=== PATIENT | male | born 1965 | race Caucasian/White ===

== ENCOUNTER 2019-05-17 17:32 | Emergency (ER) | payer OTHER ==
[2019-05-17] MEDS ORDERED: SODIUM CHLORIDE 0.9% 500 ML 500 ML IV STA (20:11)
--- NOTE | 2019-05-17 20:25 | ED ---
Abdominal Pain HPI - General Chief Complaint: Abdominal Pain Stated Complaint: left side abdominal pain Time Seen by Provider: 05/17/19 20:11 Source: patient Mode of arrival: ambulatory Limitations: no limitations - History of Present Illness Initial Comments: 54-year-old male presented emergency department for chief complaint left upper quadrant abdominal pain. Patient states the past 2 days he has had left upper quadrant abdominal pain. Patient states it hurts worse when he takes a deep breath or in specific positions. Denies any other specific alleviating or aggravating factors. Patient denies any chest pain shortness of breath denies diarrhea hemoptysis vomiting nausea no abdominal pain testicular pain arm pain and jaw pain he denies any back pain. Denies any dysuria urgency frequency hematuria. Patient states he does drink alcohol. Denies any melanotic stools or hematochezia. Patient denies experiencing this before. Patient denies any history of active cancer, patient denies use recent surgeries recent fractures recent immobilization, history of DVT/PE. Denies calf pain swelling or LE edema. Remaining ROS (-). Upon arrival patient appears well there is no signs of acute distress. - Related Data Home Medications Medication Instructions Recorded Confirmed Aspirin EC [Ecotrin Low Dose] 81 mg PO DAILY 05/17/19 05/17/19 Atorvastatin [Lipitor] 40 mg PO DAILY 05/17/19 05/17/19 Carvedilol [Coreg] 3.125 mg PO BID 05/17/19 05/17/19 Ibuprofen [Motrin] 800 mg PO Q6H PRN 05/17/19 05/17/19 Lisinopril [Zestril] 5 mg PO DAILY 05/17/19 05/17/19 Previous Rx's Medication Instructions Recorded Omeprazole 20 mg PO DAILY 14 Days #14 05/17/19 tablet. Allergies Allergy/AdvReac Type Severity Reaction Status Date / Time No Known Allergies Allergy Verified 05/17/19 21:14 Review of Systems ROS Statement: Those systems with pertinent positive or pertinent negative responses have been documented in the HPI. ROS Other: All systems not noted in ROS Statement are negative. Past Medical History Past Medical History: CVA/TIA, Myocardial Infarction ([place]) History of Any Multi-Drug Resistant Organisms: None Reported Past Surgical History: No Surgical Hx Reported Past Psychological History: No Psychological Hx Reported Smoking Status: Current every day smoker Past Alcohol Use History: Occasional Past Drug Use History: None Reported General Exam - General Exam Comments Initial Comments: General: The patient is awake and alert, in no distress, and does not appear acutely ill. Eye: Pupils are equal, round and reactive to light, extra-ocular movements are intact. No nystagmus. There is normal conjunctiva bilaterally. No signs of icterus. Ears, nose, mouth and throat: There are moist mucous membranes and no oral lesions. Neck: The neck is supple, there is no tenderness or JVD. Cardiovascular: There is a regular rate and rhythm. No murmur, rub or gallop is appreciated. Respiratory: Lungs are clear to auscultation, respirations are non-labored, b reath sounds are equal. No wheezes, stridor, rales, or rhonchi. Gastrointestinal: Soft, non-distended, abdomen tenderness to palpation of the left upper quadrant the remaining abdomen is nontender and without masses or organomegaly noted. There is no rebound or guarding present. No CVA tenderness. Bowel sounds are unremarkable. Musculoskeletal: Normal ROM, no tenderness. Strength 5/5. Sensation intact. Pulses equal bilaterally 2+. Neurological: A&O x 3. CN II-XII intact grossly, There are no obvious motor or sensory deficits. Coordination appears grossly intact. Speech is normal. Skin: Skin is warm and dry and no rashes or lesions are noted. Psychiatric: Cooperative, appropriate mood & affect, normal judgment. Limitations: no limitations Course Vital Signs 05/17/19 05/17/19 05/17/19 17:55 22:18 23:49 Temperature 99.3 F 98.5 F Pulse Rate 88 76 Respiratory 16 18 Rate Blood Pressure 122/85 134/90 O2 Sat by Pulse 98 81 L 97 Oximetry Medical Decision Making - Medical Decision Making 54-year-old male presenting for left upper quadrant abdominal pain. Reproducible on examination. Laboratories studies stable. CT abdomen/pevlic (-) for pathology. Patient did have an elevation of a d-dimer which obtained due to the close proximity of lung bourgeois and increase of pain with inspiration. CT negative for pulmonary embolism. Patient does state he frequently uses alcohol and frontal diagnosis includes peptic ulcer. Patient denies any melanotic stools. Hemoglobin stable patient appears well requesting discharge. Given patient well appearance with negative workup I feel patient is stable for dis charge with omeprazole and PCP f/u. Patient discharged appearing well. - Lab Data Result diagrams: 05/17/19 20:17 05/17/19 20:17 Lab Results 05/17/19 05/17/19 05/17/19 Range/Units 20:17 20:17 20:17 WBC 10.2 (3.8-10.6) k/uL RBC 5.07 (4.30-5.90) m/uL Hgb 16.0 (13.0-17.5) gm/dL Hct 48.0 (39.0-53.0) % MCV 94.8 (80.0-100.0) fL MCH 31.5 (25.0-35.0) pg MCHC 33.3 (31.0-37.0) g/dL RDW 12.7 (11.5-15.5) % Plt Count 297 (150-450) k/uL Neutrophils % 68 % Lymphocytes % 19 % Monocytes % 5 % Eosinophils % 4 % Basophils % 1 % Neutrophils # 6.9 (1.3-7.7) k/uL Lymphocytes # 2.0 (1.0-4.8) k/uL Monocytes # 0.5 (0-1.0) k/uL Eosinophils # 0.4 (0-0.7) k/uL Basophils # 0.1 (0-0.2) k/uL D-Dimer 0.74 H (<0.60) mg/L FEU Sodium 140 (137-145) mmol/L Potassium 4.4 (3.5-5.1) mmol/L Chloride 105 (98-107) mmol/L Carbon Dioxide 24 (22-30) mmol/L Anion Gap 11 mmol/L BUN 13 (9-20) mg/dL Creatinine 1.04 (0.66-1.25) mg/dL Est GFR (CKD-EPI)AfAm >90 (>60 ml/min/1.73 sqM) Est GFR (CKD-EPI)NonAf 83 (>60 ml/min/1.73 sqM) Glucose 92 (74-99) mg/dL Calcium 10.1 (8.4-10.2) mg/dL Total Bilirubin 0.6 (0.2-1.3) mg/dL AST 17 (17-59) U/L ALT 14 L (21-72) U/L Alkaline Phosphatase 107 (38-126) U/L Total Protein 7.7 (6.3-8.2) g/dL Albumin 4.5 (3.5-5.0) g/dL Amylase 57 (30-110) U/L Lipase 131 (23-300) U/L Urine Color Urine Appearance (Clear) Urine pH (5.0-8.0) Ur Specific [place] (1.001-1.035) Urine Protein (Negative) Urine Glucose (UA) (Negative) Urine Ketones (Negative) Urine Blood (Negative) Urine Nitrite (Negative) Urine Bilirubin (Negative) Urine Urobilinogen (<2.0) mg/dL Ur Leukocyte Esterase (Negative) 05/17/19 Range/Units 21:00 WBC (3.8-10.6) k/uL RBC (4.30-5.90) m/uL Hgb (13.0-17.5) gm/dL Hct (39.0-53.0) % MCV (80.0-100.0) fL MCH (25.0-35.0) pg MCHC (31.0-37.0) g/dL RDW (11.5-15.5) % Plt Count (150-450) k/uL Neutrophils % % Lymphocytes % % Monocytes % % Eosinophils % % Basophils % % Neutrophils # (1.3-7.7) k/uL Lymphocytes # (1.0-4.8) k/uL Monocytes # (0-1.0) k/uL Eosinophils # (0-0.7) k/uL Basophils # (0-0.2) k/uL D-Dimer (<0.60) mg/L FEU Sodium (137-145) mmol/L Potassium (3.5-5.1) mmol/L Chloride (98-107) mmol/L Carbon Dioxide (22-30) mmol/L Anion Gap mmol/L BUN (9-20) mg/dL Creatinine (0.66-1.25) mg/dL Est GFR (CKD-EPI)AfAm (>60 ml/min/1.73 sqM) Est GFR (CKD-EPI)NonAf (>60 ml/min/1.73 sqM) Glucose (74-99) mg/dL Calcium (8.4-10.2) mg/dL Total Bilirubin (0.2-1.3) mg/dL AST (17-59) U/L ALT (21-72) U/L Alkaline Phosphatase (38-126) U/L Total Protein (6.3-8.2) g/dL Albumin (3.5-5.0) g/dL Amylase (30-110) U/L Lipase (23-300) U/L Urine Color Yellow Urine Appearance Clear (Clear) Urine pH 5.5 (5.0-8.0) Ur Specific [place] >1.050 H (1.001-1.035) Urine Protein Trace H (Negative) Urine Glucose (UA) Negative (Negative) Urine Ketones Trace H (Negative) Urine Blood Negative (Negative) Urine Nitrite Negative (Negative) Urine Bilirubin Negative (Negative) Urine Urobilinogen <2.0 (<2.0) mg/dL Ur Leukocyte Esterase Negative (Negative) Disposition Clinical Impression: Intermittent left upper quadrant abdominal pain Disposition: HOME SELF-CARE Condition: Good Instructions (If sedation given, give patient instructions): Abdominal Pain (ED) Additional Instructions: Please use medication as discussed. Please follow-up with family doctor in the next 2 days. Please return to emergency room if the symptoms increase or worsen or for any other concerns. Prescriptions: Omeprazole 20 mg PO DAILY 14 Days #14 tablet.dr Is patient prescribed a controlled substance at d/c from ED?: No Referrals: David Romero MD [Primary Care Provider] - 1-2 days Time of Disposition: 23:49
[2019-05-17 20:41] LABS: Basophils # (A) 0.1 k/uL (0-0.2); Basophils % (A) 1 %; Eosinophils # (A) 0.4 k/uL (0-0.7); Eosinophils % (A) 4 %; Lymphocytes % (A) 19 %; MCH 31.5 pg (25.0-35.0); MCHC 33.3 g/dL (31.0-37.0); MCV 94.8 fL (80.0-100.0); Monocytes # (A) 0.5 k/uL (0-1.0); Monocytes % (A) 5 %; Neutrophils # (A) 6.9 k/uL (1.3-7.7); Neutrophils % (A) 68 %; Platelet Count 297 k/uL (150-450); RBC 5.07 m/uL (4.30-5.90); RDW 12.7 % (11.5-15.5); WBC 10.2 k/uL (3.8-10.6)
[2019-05-17 20:49] LABS: ALT 14 U/L (21-72); AST 17 U/L (17-59); African American GFR (CKD) >90 (>60 ml/min/1.73 sqM); Albumin 4.5 g/dL (3.5-5.0); Alkaline Phosphatase 107 U/L (38-126); Amylase 57 U/L (30-110); Anion Gap 11 mmol/L; Blood Urea Nitrogen 13 mg/dL (9-20); Calcium 10.1 mg/dL (8.4-10.2); Carbon Dioxide 24 mmol/L (22-30); Chloride 105 mmol/L (98-107); Glucose 92 mg/dL (74-99); Potassium 4.4 mmol/L (3.5-5.1); Sodium 140 mmol/L (137-145); Total Bilirubin 0.6 mg/dL (0.2-1.3); Total Protein 7.7 g/dL (6.3-8.2)
[2019-05-17 21:20] LABS: Appearance,Urine Clear (Clear); Bilirubin,Urine Negative (Negative); Blood,Urine Negative (Negative); Color,Urine Yellow; Glucose,Urine (UA) Negative (Negative); Ketones,Urine Trace (Negative); Leukocyte Esterase,Urine Negative (Negative); Nitrite,Urine Negative (Negative); PH, Urine 5.5 (5.0-8.0); Protein,Urine Trace (Negative); Urobilinogen,Urine <2.0 mg/dL (<2.0)
[2019-05-17 21:26] LABS: Specific Gravity,Urine >1.050 (1.001-1.035)
--- NOTE | 2019-05-17 21:36 | XR ---
EXAMINATION TYPE: XR chest 2V DATE OF EXAM: 05/17/2019 COMPARISON: None INDICATION: Left upper quadrant pain TECHNIQUE: Frontal and lateral views of the chest are obtained. FINDINGS: The heart size is normal. The pulmonary vasculature is normal. The lungs are clear. IMPRESSION: 1. No acute pulmonary process.
--- NOTE | 2019-05-17 21:54 | CT ---
EXAMINATION TYPE: CT abdomen pelvis w con DATE OF EXAM: 05/17/2019 COMPARISON: None INDICATION: LLQ pain DLP: 619.2 mGycm, Automated exposure control for dose reduction was used. CONTRAST: 100 mL of Isovue 300. Study performed without Oral Contrast TECHNIQUE: Axial images were obtained from above the diaphragm to the pubic rami in the axial plane a t 5 mm thick sections. Reconstructed images are reviewed on the computer in the coronal plane. FINDINGS: Limited CT sections are obtained the lung bases. The lung bases are clear. CT ABDOMEN: Liver: Normal Spleen: Normal Pancreas: Normal Adrenal glands: The adrenal glands are normal. Gallbladder: Normal Kidneys: No masses are evident. No hydronephrosis is present. No cysts are present. Delayed images were obtained through the kidneys, which remain unremarkable. Aorta: Normal Inferior vena cava: Normal. CT PELVIS: Loops of bowel within the abdomen and pelvis are normal. Studies performed without oral contrast limiting bowel evaluation. Appendix: Normal as visualized. Urinary bladder: Normal. Genitourinary structures: Prostate is prominent. Osseous structures: No suspicious lytic or sclerotic lesions. IMPRESSIONS: 1. 1. No suspicious abnormality to account for left lower quadrant pain.
[2019-05-17 22:20] VITALS: BP 134/90; PULSE 76; RESP 18; TEMP 98.5
--- NOTE | 2019-05-17 23:37 | CT ---
EXAMINATION TYPE: CT angio chest DATE OF EXAM: 05/17/2019 11:09 PM COMPARISON: None HISTORY: R/O PE CT DLP: 316.30 mGycm Automated exposure control for dose reduction was used. CONTRAST: CTA scan of the thorax is performed with IV Contrast, patient injected with 60 mL of Isovue 370, pulm onary embolism protocol. . FINDINGS: There are 3-D post processed images. There is no pleural effusion or pneumothorax. Lungs are clear of consolidation. There is mild scarrin g and subsegmental atelectasis at the lung bases. Upper abdominal soft tissues are intact. Heart size is normal. There is no pericardial effusion. There are no hilar masses. There is no medias tinal adenopathy. Thoracic aorta shows no aneurysm or dissection. The ascending aorta measures 3.8 cm . There is normal contrast opacification of the pulmonary arteries. I see no filling defect. The thoracic vertebra have normal alignment. Disc spaces are fairly normal. Posterior elements are in tact. The ribs appear intact. IMPRESSION: MILD SCARRING AND SUBSEGMENTAL ATELECTASIS AT THE LUNG BASES. NO EVIDENCE OF PULMONARY EMBOLISM. NORMAL HEART.
== END 2019-05-17 23:53 | disposition home or self-care (01) ==
LOC: EC 17:32
DX: R10.12 Left upper quadrant pain (principal); R79.1 Abnormal coagulation profile; Z72.89 Other problems related to lifestyle; I25.2 Old myocardial infarction; F17.200 Nicotine dependence, unspecified, uncomplicated; Z79.82 Long term (current) use of aspirin; Z79.899 Other long term (current) drug therapy; Z86.73 Personal history of transient ischemic attack (TIA), and cerebral infarction without residual deficits
CPT/HCPCS: 36415; 85379; 80053; 82150; 83690; 85025; 81003; 71046; 71275; 74177; 99284; 96360; 96361 ×2; Q9967 ×2